=== PATIENT | male | born 1965 | race African-American/Black ===

== ENCOUNTER 2021-07-04 12:20 | Emergency (ER) | payer OTHER ==
[~2021-07-04] VITALS: Ht 177.8 cm; Wt 77.1 kg
[2021-07-04] MEDS ORDERED: NAPROSYN500 MG PO (13:56)
== END 2021-07-04 14:00 | disposition home or self-care (01) ==
LOC: FSED 12:36
DX: M79.671 Pain in right foot (principal); S90.31XA Contusion of right foot, initial encounter; W20.8XXA Other cause of strike by thrown, projected or falling object, initial encounter; Y99.0 Civilian activity done for income or pay
CPT/HCPCS: 99283